=== PATIENT | female | born 1950 | race Caucasian/White ===

== ENCOUNTER → 2021-01-07 10:20 | Outpatient (BNVA) | payer MEDICARE, OTHER, SELFPAY | PROVIDERS: Family Provider Family Medicine; PCP Family Medicine; Referring Provider Family Medicine; Visit Provider Podiatrist Foot & Ankle Surgery | DX: M79.672 Pain in left foot (principal) | CPT/HCPCS: 73630 ==

== ENCOUNTER 2021-02-09 10:36 | Outpatient (CLI) | payer MEDICARE, OTHER, SELFPAY ==
--- NOTE | 2021-02-09 11:00 | US_ITS ---
WS: [id number] INDICATION: Deluca's neuroma TECHNIQUE: Ultrasound left plantar foot FINDINGS: Hypoechoic nodule between the second third toes in the area of concern measuring 4.4 x 2.5 x 6.1 mm suspicious for Deluca's neuroma. US/US soft tissue/extremity [id number] IMPRESSION: Solid nodule described above suspicious for Deluca's neuroma.
== END 2021-02-09 10:37 | disposition home or self-care (01) ==
LOC: US 10:38
PROVIDERS: PCP Family Medicine; Visit Provider Podiatrist Foot & Ankle Surgery
DX: M79.672 Pain in left foot (principal)
CPT/HCPCS: 76882

== ENCOUNTER 2021-08-25 06:00 | Outpatient (RCR) | payer MEDICARE, OTHER, SELFPAY | END 2021-08-25 23:59 | disposition home or self-care (01) | LOC: TPT 06:00 | PROVIDERS: PCP Family Medicine; Referring Provider Podiatrist Foot & Ankle Surgery; Visit Provider Podiatrist Foot & Ankle Surgery | DX: M72.2 Plantar fascial fibromatosis (principal) | CPT/HCPCS: 97110; 97162 ==

== ENCOUNTER 2021-08-26 12:02 | Outpatient (RCR) | payer MEDICARE, OTHER, SELFPAY | END 2021-09-25 23:59 | disposition home or self-care (01) | LOC: TPT 12:02 | PROVIDERS: PCP Family Medicine; Referring Provider Podiatrist Foot & Ankle Surgery; Visit Provider Podiatrist Foot & Ankle Surgery | DX: M72.2 Plantar fascial fibromatosis (principal) | CPT/HCPCS: 97110; 97140; 97530 ==

== ENCOUNTER → 2022-04-07 15:43 | Outpatient (BNVA) | payer MEDICARE, OTHER, SELFPAY | PROVIDERS: PCP Family Medicine; Visit Provider Podiatrist Foot & Ankle Surgery | DX: G57.62 Lesion of plantar nerve, left lower limb (principal); M79.672 Pain in left foot | CPT/HCPCS: 64455; J3490 ==

== ENCOUNTER → 2022-04-14 15:33 | Outpatient (BNVA) | payer MEDICARE, OTHER, SELFPAY | PROVIDERS: PCP Family Medicine; Visit Provider Podiatrist Foot & Ankle Surgery | DX: M79.672 Pain in left foot (principal); G57.62 Lesion of plantar nerve, left lower limb | CPT/HCPCS: 64455 ==

== ENCOUNTER → 2022-04-28 15:36 | Outpatient (BNVA) | payer MEDICARE, OTHER, SELFPAY | PROVIDERS: PCP Family Medicine; Visit Provider Podiatrist Foot & Ankle Surgery | DX: Z71.89 Other specified counseling (principal); G57.62 Lesion of plantar nerve, left lower limb; M79.672 Pain in left foot | CPT/HCPCS: 64455 ==

== ENCOUNTER → 2022-05-05 15:33 | Outpatient (BNVA) | payer MEDICARE, OTHER, SELFPAY | PROVIDERS: PCP Family Medicine; Visit Provider Podiatrist Foot & Ankle Surgery | DX: Z71.89 Other specified counseling (principal); G57.62 Lesion of plantar nerve, left lower limb | CPT/HCPCS: 64455 ==

== ENCOUNTER → 2022-05-12 15:20 | Outpatient (BNVA) | payer MEDICARE, OTHER, SELFPAY | PROVIDERS: PCP Family Medicine; Visit Provider Podiatrist Foot & Ankle Surgery | DX: Z71.89 Other specified counseling (principal); G57.62 Lesion of plantar nerve, left lower limb | CPT/HCPCS: 99213 ==

== ENCOUNTER → 2022-06-02 15:32 | Outpatient (BNVA) | payer MEDICARE, OTHER, SELFPAY | PROVIDERS: PCP Family Medicine; Visit Provider Podiatrist Foot & Ankle Surgery | DX: G57.62 Lesion of plantar nerve, left lower limb (principal); Z71.89 Other specified counseling | CPT/HCPCS: 64455 ==

== ENCOUNTER → 2022-10-05 14:59 | Outpatient (BNVA) | payer MEDICARE, OTHER, SELFPAY | PROVIDERS: PCP Family Medicine; Visit Provider Podiatrist Foot & Ankle Surgery | DX: G57.62 Lesion of plantar nerve, left lower limb (principal) | CPT/HCPCS: 99213 ==

== ENCOUNTER → 2023-04-19 09:59 | Outpatient (BNVA) | payer MEDICARE, OTHER, SELFPAY | PROVIDERS: PCP Family Medicine; Visit Provider Podiatrist Foot & Ankle Surgery | DX: M77.42 Metatarsalgia, left foot; M76.72 Peroneal tendinitis, left leg | CPT/HCPCS: 99213 ==

== ENCOUNTER → 2023-05-04 08:49 | Outpatient (BNVA) | payer MEDICARE, OTHER, SELFPAY | PROVIDERS: PCP Family Medicine; Visit Provider Family Medicine | DX: Z00.00 Encounter for general adult medical examination without abnormal findings (principal) | CPT/HCPCS: 80053; 80061; 82306; 82607; 83880; 84443; 85025; 86140 ==

== ENCOUNTER 2023-06-06 12:37 | Outpatient (CLI) | payer MEDICARE, OTHER, SELFPAY ==
--- NOTE | 2023-06-06 13:00 | XR_ITS ---
WS: [id number] DEXA (DUAL ENERGY X-RAY ABSORPTIOMETRY) Bone mineral density was performed using a [employer] machine. HISTORY: screening COMPARISON: None available. Lumbar spine BMD (L1-L4): 0.805 g/cm2 T score: -3.1 Z score: -1.9 Total hip BMD: Left: 0.799 g/cm2. T score: -1.7 Z score: -0.5 Right: 0.811 g/cm2. T score: -1.6 Z score: -0.4 10 year probability of a major osteoporotic fracture is 15.7%. IMPRESSION: OSTEOPOROSIS based upon the WHO classification for females.
== END 2023-06-06 12:38 | disposition home or self-care (01) ==
PROVIDERS: PCP Family Medicine; Visit Provider Family Medicine
DX: Z00.00 Encounter for general adult medical examination without abnormal findings (principal); M81.0 Age-related osteoporosis without current pathological fracture
CPT/HCPCS: 77080

== ENCOUNTER 2023-07-05 06:00 | Outpatient (RCR) | payer MEDICARE, OTHER, SELFPAY | END 2023-07-26 23:59 | disposition home or self-care (01) | LOC: TPT 06:00 | PROVIDERS: Visit Provider Family Medicine | DX: M12.811 Other specific arthropathies, not elsewhere classified, right shoulder (principal); Z47.1 Aftercare following joint replacement surgery; Z96.611 Presence of right artificial shoulder joint | CPT/HCPCS: 97110; 97140; 97162 ==

== ENCOUNTER 2023-07-18 12:07 | Outpatient (CLI) | payer MEDICARE, OTHER, SELFPAY ==
--- NOTE | 2023-07-18 13:00 | USCV_ITS ---
Tameka Guerrero Age: 72 Gender: F : 1950 Exam Date: 07/18/2023 12:38 Ordering Phys: Ganesh Wood MD Technologist: Exam Location: [facility] [place] Indication: chest pain BP: / HR: 68 Rhythm: Sinus Technical Quality: Adequate MEASUREMENTS (Male / Female) Normal Values 2D ECHO LV Diastolic Diameter PLAX 3.9 cm 4.2 - 5.9 / 3.9 - 5.3 cm LV Systolic Diameter PLAX 2.4 cm IVS Diastolic Thickness 1.1 cm 0.6 - 1.0 / 0.6 - 0.9 cm IVS Systolic Thickness 1.2 cm LVPW Diastolic Thickness 1.2 cm 0.6 - 1.0 / 0.6 - 0.9 cm LVPW Systolic Thickness 1.3 cm LVOT Diameter 2.0 cm LV Ejection Fraction 2D Teich 70.3 % LV Ejection Fraction MOD 2C 59.2 % LV Ejection Fraction 2C AL 58.2 % LA Diameter 3.6 cm M-MODE Aortic Annulus Diameter 3.1 cm LA Ao Ratio MM 1.4 MV E Point Septal Separation 0.5 cm DOPPLER AV Peak Velocity 118.0 cm/s LVOT Peak Velocity 84.0 cm/s AV Area Cont Eq vti 2.4 cm squared AV Area Cont Eq pk 2.3 cm squared MV Area PHT 5.0 cm squared Mitral E to A Ratio 1.0 MV E' Velocity 38.5 cm/s Mitral E to MV E' Ratio 10.7 Mitral E to LV E' Lateral Ratio 10.4 Mitral E to LV E' Septal Ratio 11.1 TR Peak Velocity 127.0 cm/s TR Peak Gradient 6.5 mmHg Right Atrial Pressure 3.0 mmHg Pulmonary Artery Systolic Pressu 9.5 mmHg FINDINGS Left Ventricle Left ventricle is normal in size. LV systolic function is normal with EF of 55 to 60%. No regional wall motion abnormalities are seen. Right Ventricle Normal in size and function Right Atrium Normal in size Left Atrium Normal in size Mitral Valve Structurally normal mitral valve. Trace mitral regurgitation. Aortic Valve Structurally normal aortic valve. No significant stenosis. Mild aortic regurgitation. Tricuspid Valve Trace tricuspid regurgitation. Insufficient TR jet to calculate RVSP. Pulmonic Valve Mild pulmonic regurgitaiton. Pericardium Normal Aorta Normal in size IVC Apears to be normal CONCLUSIONS LV systolic function is normal with EF of 55 to 60%. Trace mitral regurgitation. Mild aortic regurgitation. Trace tricuspid regurgitation. Mild pulmonic regurgitation. No comparison studies are available Wenceslao Arciniega MD (Electronically Signed) Final Date: 21 July 2023 14:23 S
== END 2023-07-18 12:08 | disposition home or self-care (01) ==
LOC: RAD 12:07
PROVIDERS: PCP Family Medicine; Visit Provider Family Medicine
DX: I08.3 Combined rheumatic disorders of mitral, aortic and tricuspid valves (principal); R07.9 Chest pain, unspecified
CPT/HCPCS: 93306

== ENCOUNTER 2023-07-27 06:00 | Outpatient (RCR) | payer MEDICARE, OTHER, SELFPAY | END 2023-08-25 23:59 | disposition home or self-care (01) | LOC: TPT 06:00 | PROVIDERS: PCP Family Medicine; Visit Provider Family Medicine | DX: M12.811 Other specific arthropathies, not elsewhere classified, right shoulder (principal) | CPT/HCPCS: 97110; 97140 ==

== ENCOUNTER 2023-08-26 06:00 | Outpatient (RCR) | payer MEDICARE, OTHER, SELFPAY | END 2023-08-31 23:59 | disposition home or self-care (01) | LOC: TPT 06:00 | PROVIDERS: PCP Family Medicine; Visit Provider Family Medicine | DX: M12.811 Other specific arthropathies, not elsewhere classified, right shoulder (principal) | CPT/HCPCS: 97110; 97140 ==

== ENCOUNTER 2024-08-16 12:16 | Outpatient (CLI) | payer MEDICARE, OTHER, SELFPAY ==
--- NOTE | 2024-08-16 12:22 | XR_ITS ---
WS: [id number] Exam: XR thoracic spine 2V [id number] Date/Time of Exam: 08/16/2024 12:25 PM Reason For Exam: back pain There is a compression fracture of the upper plate of T8 with about 60% loss of vertebral height and no obvious posterior displacement. Fracture age is indeterminate but this could be a recent fracture. No other fractures. Mild spondylosis and degenerative disc change at all levels. Osteopenia. Mild le voscoliosis. Normal paraspinal soft tissues. XR/XR thoracic spine 2V [id number] IMPRESSION: 1. Compression fracture of the upper plate of T8 with about 60% loss in vertebr al height and no posterior displacement. This may be a recent fracture. 2. Degenerative changes, osteopenia and mild levoscoliosis.
== END 2024-08-16 12:17 | disposition home or self-care (01) ==
LOC: RAD 12:19
PROVIDERS: PCP Family Medicine; Visit Provider Family Medicine
DX: S22.080A Wedge compression fracture of T11-T12 vertebra, initial encounter for closed fracture (principal); M81.0 Age-related osteoporosis without current pathological fracture; M85.80 Other specified disorders of bone density and structure, unspecified site; M51.34 Other intervertebral disc degeneration, thoracic region; X58.XXXA Exposure to other specified factors, initial encounter
CPT/HCPCS: 72070

== ENCOUNTER 2024-09-11 12:03 | Outpatient (CLI) | payer MEDICARE, OTHER, SELFPAY ==
--- NOTE | 2024-09-11 13:00 | MR_ITS ---
WS: [id number] MRI THORACIC SPINE WITHOUT CONTRAST TECHNIQUE: Sagittal T1, T2 and STIR imaging. Axial T2 imaging. Noncontrast imaging obtained. CLINICAL INFORMATION: compression fracture COMPARISON: None. FINDINGS: Some images degraded by motion artifact. Mild thoracolumbar curve. Moderate thoracic kyphosis. Compression with anterior wedging at T8 with lo ss of approximately 50% vertebral body height. No retropulsion.Compression fracture has a chronic jourdan earance. No edema. Complex septated T2 hyperintense lesions in the RIGHT hepatic lobe measuring 1.8 cm. Recommend furthe r evaluation with contrast-enhanced CT abdomen pelvis liver protocol. Moderate facet arthropathy lower thoracic spine. Normal caliber thoracic aorta. Adrenal glands are no rmal. Small LEFT renal cyst. MR/MR thoracic spin wo con* [id number] IMPRESSION: 1. Compression with anterior wedging at T8 with loss of approximately 50% ve rtebral body height. No retropulsion. This has a chronic appearance. No signifi cant edema. 2. No other compression fractures. 3. Moderate thoracic kyphosis with mild scoliosis. 4. No significant central canal stenosis. Cord signal is normal. 5. Complex septated 1.8 cm lesion in the RIGHT hepatic lobe. Recommend further evaluation with contrast-enhanced CT abdomen pelvis. No prior liver imaging fo r comparison.
== END 2024-09-11 12:04 | disposition home or self-care (01) ==
LOC: RAD 12:04
PROVIDERS: PCP Family Medicine; Visit Provider Family Medicine
DX: S22.060A Wedge compression fracture of T7-T8 vertebra, initial encounter for closed fracture (principal); M40.204 Unspecified kyphosis, thoracic region; K76.9 Liver disease, unspecified; M46.94 Unspecified inflammatory spondylopathy, thoracic region; N28.1 Cyst of kidney, acquired; M81.0 Age-related osteoporosis without current pathological fracture; X58.XXXA Exposure to other specified factors, initial encounter
CPT/HCPCS: 72146

== ENCOUNTER 2024-10-10 12:25 | Outpatient (CLI) | payer MEDICARE, OTHER, SELFPAY ==
--- NOTE | 2024-10-10 13:00 | CT_ITS ---
WS: [id number] CT ABDOMEN AND PELVIS WITH CONTRAST HISTORY: liver lesion TECHNIQUE: Imaging performed of the abdomen and pelvis with IV contrast. Single phase imaging of the abdomen. Coronal and sagittal reformats are submitted. All CT scans at [facility] use at [address] one of these dose optimization techniques: automated exposure control; mA and/or kV adjustment per patient size (includes targeted exams where dose is matched to clinical indication); or iterative re construction. IV CONTRAST: Omnipaque 350; 100 mL IV. Oral contrast: No DLP: 1174.46 mGy.cm COMPARISON: None available. Lower thorax: Lung bases are clear. Heart is normal size. No hiatal hernia. Liver/biliary system: Normal size liver. Lobulated cystic mass LEFT lobe measures 4.9 x 4.8 cm and de monstrates no significant enhancement. There are additional smaller scattered similar size masses whi ch are probably also cysts. 7 mm lesion in the central liver is too small to characterize. No bile du ct dilatation. No solid mass. Gallbladder: Normal. No gallstones or wall thickening. No pericholecystic fluid. Pancreas: Normal size pancreas and pancreatic duct. No adjacent inflammation. Spleen: Normal size spleen. No mass or infarct. Granuloma. Adrenal glands: Normal. Right kidney: Normal size kidney with no obstruction. Focal cortical thinning and scarring mid kidney . There are a few tiny cortical hypodensities which are too small to characterize. Left kidney: No obstruction. No cortical thinning or atrophy. Too small to characterize cortical hypo densities. Aorta: Normal. Mild mesenteric misting with a few small mesenteric lymph nodes. No adenopathy. Lymphadenopathy: None. Free fluid: None. GI tract: Nondistended stomach. No small bowel obstruction. Normal appendix. Mild sigmoid diverticulo sis. Abdominal wall: Unremarkable abdominal wall. No hernia. Pelvis: Tiny amount of free fluid in the cul-de-sac. Mild pelvic venous congestion. Bones: Mild anterior wedging of L3 with 10% loss of height. CT/CT abdomen pelvis w con* [id number] IMPRESSION: 1. Previously described mass seen on MRI is a simple lobulated cyst in the LEF T lobe of the liver measuring 4.9 x 4.8 cm 2. There are a few additional cyst but also too small to characterize hypodens ities. 3. Normal gallbladder. 4. No renal obstruction. Too small to characterize hypodensities in the renal cortex. 5. No GI tract obstruction. 6. Tiny amount of free fluid in the cul-de-sac of uncertain etiology. 7. 10% L3 compression fracture.
[2024-10-10 13:14] LABS: Blood Urea Nitrogen 14 mg/dL (8-23)
[2024-10-10] MEDS: iohexol 350 mg/mL 500 mL Btl (per mL) IV (13:26)
== END 2024-10-10 12:26 | disposition home or self-care (01) ==
LOC: RAD 12:25
PROVIDERS: PCP Family Medicine; Visit Provider Family Medicine
DX: R16.0 Hepatomegaly, not elsewhere classified (principal); K76.89 Other specified diseases of liver; S32.039A Unspecified fracture of third lumbar vertebra, initial encounter for closed fracture; D73.89 Other diseases of spleen; R93.421 Abnormal radiologic findings on diagnostic imaging of right kidney; R93.89 Abnormal findings on diagnostic imaging of other specified body structures; K57.30 Diverticulosis of large intestine without perforation or abscess without bleeding; N94.89 Other specified conditions associated with female genital organs and menstrual cycle; X58.XXXA Exposure to other specified factors, initial encounter
CPT/HCPCS: 74177; 82565; 84520

== ENCOUNTER → 2024-10-16 12:33 | Outpatient (BNVA) | payer MEDICARE, OTHER, SELFPAY | PROVIDERS: PCP Family Medicine; Visit Provider Nurse Practitioner Family | DX: L90.0 Lichen sclerosus et atrophicus (principal); L81.4 Other melanin hyperpigmentation; D22.5 Melanocytic nevi of trunk; L82.1 Other seborrheic keratosis; Z08 Encounter for follow-up examination after completed treatment for malignant neoplasm; Z85.828 Personal history of other malignant neoplasm of skin | CPT/HCPCS: 99214 ==

== ENCOUNTER → 2024-11-27 09:54 | Outpatient (BNVA) | payer MEDICARE, OTHER, SELFPAY | PROVIDERS: PCP Family Medicine; Visit Provider Family Medicine | DX: Z00.00 Encounter for general adult medical examination without abnormal findings (principal); M81.0 Age-related osteoporosis without current pathological fracture; M54.9 Dorsalgia, unspecified; E03.9 Hypothyroidism, unspecified | CPT/HCPCS: 80053; 80061; 84443; 85025 ==

== ENCOUNTER → 2025-03-14 15:27 | Outpatient (BNVA) | payer MEDICARE, OTHER, SELFPAY | PROVIDERS: PCP Family Medicine; Visit Provider Nurse Practitioner Family | DX: L56.8 Other specified acute skin changes due to ultraviolet radiation (principal); L81.4 Other melanin hyperpigmentation; Z08 Encounter for follow-up examination after completed treatment for malignant neoplasm; Z85.828 Personal history of other malignant neoplasm of skin | CPT/HCPCS: 99213 ==

== ENCOUNTER 2025-07-31 12:57 | Outpatient (CLI) | payer MEDICARE, OTHER, SELFPAY ==
--- NOTE | 2025-07-31 15:00 | XR_ITS ---
WS: [id number] SCREENING DEXA SCAN [employer] CLINICAL INFORMATION: screening COMPARISON: 2022 FINDINGS: The L1-L4 bone mineral density measures 0.812 g/cm2. This corresponds to a T score score of -3.1 and Z score of -1.7. Left femoral neck bone mineral density measures 0.815 g/cm2. This corresponds to a T score of -1.5 and Z score of -0.2. Right femoral neck bone mineral density measures 0.815 g/cm2. This corresponds to a T score -1.5of and Z score of -0.2. Mean femoral neck bone mineral density measures 0.815 g/cm2. This corresponds to a T score of -1.5 and Z score of -0.2. XR/XR DEXA axial skeleton* [id number] IMPRESSION: Osteoporosis lumbar spine. Osteopenia femoral necks. Patient's FRAX calculated 10 year probability for major osteoporotic fracture i s 15.7% and osteoporotic hip fracture is 4.4%. Bone density lumbar spine increased 0.9% Bone density femoral necks increased 1.2%
== END 2025-07-31 12:58 | disposition home or self-care (01) ==
LOC: RAD 12:58
PROVIDERS: PCP Family Medicine; Visit Provider Family Medicine
DX: Z13.820 Encounter for screening for osteoporosis (principal); Z00.00 Encounter for general adult medical examination without abnormal findings; M85.89 Other specified disorders of bone density and structure, multiple sites; M81.8 Other osteoporosis without current pathological fracture
CPT/HCPCS: 77080